=== PATIENT | female | born 1955 | race Caucasian/White ===

== ENCOUNTER → 2020-05-25 11:28 | Outpatient (CLI) | payer BC, SELFPAY ==
[2020-05-25 12:01] LABS: Add Manual Diff / Slide Review NO; Basophils Absolute Auto 0 /uL (0-100); Basophils Percent Auto 0.6 % (0-2); Eosinophils Absolute Auto 100 /uL (0-450); Eosinophils Percent Auto 1.4 % (2-4); Hematocrit 43.9 % (36-46); Hemoglobin 15.4 g/dL (12.0-16.0); Lymphocytes Absolute Auto 1500 /uL (1100-4500); Lymphocytes Percent Auto 31.7 % (25-40); Mean Corpuscular HGB Conc 35.1 % (30-36); Mean Corpuscular Volume 99.7 fL (80-100); Monocytes Absolute Auto 400 /uL (0-900); Monocytes Percent Auto 7.6 % (3-14); Neutrophils Absolute Auto 2900 /uL (1500-7000); Neutrophils Percent Auto 58.7 % (50-75); Platelet Count 170 X10^3/uL (150-400); Red Cell Distribution Width 12.4 % (11.6-14.8); White Blood Cell Count 4.9 X10^3/uL (4.5-11.0)
[2020-05-25 12:18] LABS: Alanine Aminotransferase 135 IU/L (<35); Albumin 4.9 g/dL (3.5-5.0); Albumin Globulin Ratio 1.6 (1.0-2.8); Alkaline Phosphatase 93 U/L (38-126); Aspartate Aminotransferase 75 IU/L (14-36); BUN Creatinine Ratio 23.4 (6-22); Bilirubin Total 0.9 mg/dL (0.2-1.3); Blood Urea Nitrogen 15 mg/dL (7-17); Calcium 9.8 mg/dL (8.4-10.2); Carbon Dioxide 29 mmol/L (22-32); Chloride 103 mmol/L (98-107); Cholesterol 269 mg/dL (140-199); Estimated Glomerular Filt Rate > 60.0 mL/min (>60); Glucose 102 mg/dL (80-110); HDL Cholesterol 59 mg/dL (40-60); HEMOLYSIS < 15 (0-50); LDL Cholesterol Calculated 135 mg/dL (<100); Potassium 4.5 mmol/L (3.4-5.1); Sodium 139 mmol/L (137-145); Total Protein 7.9 g/dL (6.3-8.2); Triglycerides 373 mg/dL (35-150)
[2020-05-25 12:47] LABS: TSH w/ Reflex to FT4 1.84 uIU/mL (0.47-4.68)
== END ==
PROVIDERS: PCP Registered Nurse Diabetes Educator; Referring Provider Registered Nurse Diabetes Educator; Visit Provider Registered Nurse Diabetes Educator
DX: E78.5 Hyperlipidemia, unspecified (principal)
CPT/HCPCS: 36415; 80053; 80061; 84443; 85025

== ENCOUNTER → 2020-08-25 11:08 | Outpatient (CLI) | payer OTHER, SELFPAY ==
[2020-08-25 13:41] LABS: Alanine Aminotransferase 112 IU/L (<35); Albumin Globulin Ratio 1.7 (1.0-2.8); Alkaline Phosphatase 86 U/L (38-126); Aspartate Aminotransferase 84 IU/L (14-36); Bilirubin Unconjugated 0.9 mg/dL (0.0-1.1); Globulin 2.9 g/dL (1.7-4.1); HEMOLYSIS 41 (0-50); Total Protein 7.9 g/dL (6.3-8.2)
== END ==
PROVIDERS: PCP Registered Nurse Diabetes Educator; Referring Provider Registered Nurse Diabetes Educator; Visit Provider Registered Nurse Diabetes Educator
DX: E66.3 Overweight (principal); R74.8 Abnormal levels of other serum enzymes
CPT/HCPCS: 36415; 80076

== ENCOUNTER → 2020-08-31 11:12 | Outpatient (CLI) | payer OTHER, SELFPAY ==
[2020-08-31 12:30] LABS: Creatine Kinase 84 U/L (30-135); HEMOLYSIS < 15 (0-50); Iron 167 ug/dL (37-170)
[2020-08-31 12:41] LABS: Percent Iron Saturation 50 % (15-50); Total Iron Binding Capacity 334 ug/dL (265-497); Transferrin 290 mg/dL (206-381)
[2020-08-31 13:06] LABS: Ferritin 384 ng/mL (11-264)
[2020-08-31 16:36] LABS: Hepatitis B Surface Antigen NEGATIVE s/c (NEGATIVE)
[2020-08-31 16:58] LABS: Hep C Virus Ab w/Reflex Quant NEGATIVE s/c (NEGATIVE)
[2020-09-01 04:08] LABS: Ceruloplasmin 18.4 mg/dL (19.0-39.0)
[2020-09-01 04:36] LABS: Hepatitis B Core AB w/Reflex Negative (Negative)
[2020-09-01 06:09] LABS: Hepatitis A Ab IgM Negative (Negative); Hepatitis A Ab Total Positive (Negative)
[2020-09-01 08:09] LABS: Hepatitis B Surf Ab Qualitativ Non Reactive (.)
[2020-09-01 18:37] LABS: ANA Screen, IFA Negative (.)
[2020-09-02 11:36] LABS: Smooth Muscle Antibody 6 Units (0-19)
[2020-09-03 03:36] LABS: Deamidated Gliadin IgA 4 units (0-19); Deamidated Gliadin IgG 2 units (0-19); IGA 146 mg/dL (87-352); t-Transglutaminase IgA <2 U/mL (0-3)
== END ==
PROVIDERS: PCP Registered Nurse Diabetes Educator; Referring Provider Registered Nurse Diabetes Educator; Visit Provider Registered Nurse Diabetes Educator
DX: R74.8 Abnormal levels of other serum enzymes (principal)
CPT/HCPCS: 36415; 82390; 82550; 82728; 82784; 83516; 83540; 83550; 86038; 86704; 86706; 86708; 86709; 86803; 87340

== ENCOUNTER → 2020-09-02 08:53 | Outpatient (CLI) | payer OTHER, SELFPAY ==
--- NOTE | 2020-09-02 08:54 | DI.US.S_ITS ---
PROCEDURE: US ABDOMEN LIMITED INDICATIONS: ELEVATED ALT/AST TECHNIQUE: Real-time scanning was performed of the abdominal and retroperitoneal organs, with image documentation. COMPARISON: None. FINDINGS: Liver: Normal in size. Increased in echogenicity. Simple cyst in the left lobe measuring 2.1 cm. Main portal vein measures 1 cm in diameter. Expected hepatopetal flow. Gallbladder: Nondilated. Anti dependent echogenic focus at the gallbladder fundus measuring 0.8 cm. Echogenic focus at the proximal gallbladder measuring 0.7 cm. No stones or sludge. Normal gallbladder wall thickness. No pericholecystic fluid. Negative sonographic Altman's sign. Biliary ducts: Intrahepatic bile ducts are non-dilated. Extrahepatic bile duct caliber measures 4 mm. Normal is 6-7 mm or less in diameter, or 10 mm or less post-cholecystectomy. Pancreas: Visualized portions of the pancreas are sonographically normal. No hydronephrosis of the right kidney. IMPRESSION: 1. Increased hepatic echogenicity most consistent with hepatic steatosis. Other forms of hepatocellular disease could have similar appearance. 2. Small gallbladder polyps measuring up to 8 mm. -recommend follow-up gallbladder ultrasound in 1 year. 3. No acute cholecystitis. No gallstones seen. Dictated by: Mike Hurtado M.D. on 09/02/2020 at 9:12 Approved by: Mike Hurtado M.D. on 09/02/2020 at 9:17
== END ==
PROVIDERS: PCP Registered Nurse Diabetes Educator; Referring Provider Registered Nurse Diabetes Educator; Visit Provider Registered Nurse Diabetes Educator
DX: R74.8 Abnormal levels of other serum enzymes (principal); K82.4 Cholesterolosis of gallbladder
CPT/HCPCS: 76705

== ENCOUNTER → 2020-10-01 10:01 | Outpatient (CLI) | payer OTHER, SELFPAY | PROVIDERS: PCP Registered Nurse Diabetes Educator; Referring Provider Registered Nurse Diabetes Educator; Visit Provider Registered Nurse Diabetes Educator | DX: R74.8 Abnormal levels of other serum enzymes (principal) | CPT/HCPCS: 82525; 82570 ==

== ENCOUNTER → 2020-12-17 11:13 | Outpatient (CLI) | payer OTHER, SELFPAY ==
--- NOTE | 2020-12-17 11:14 | DI.MG.S_ITS ---
BILATERAL DIGITAL SCREENING MAMMOGRAM 3D/2D WITH CAD: 12/17/2020 CLINICAL: Routine screening. Comparison is made to exams dated: 07/27/2015 mammogram, 07/26/2016 mammogram, 04/28/2017 mammogram, and 05/01/2018 mammogram - outside location. The tissue of both breasts is heterogeneously dense. This may lower the sensitivity of mammography. Current study was also evaluated with a Computer Aided Detection (CAD) system. No significant masses, calcifications, or other findings are seen in either breast. There has been no significant interval change. IMPRESSION: NEGATIVE There is no mammographic evidence of malignancy. A 1 year screening mammogram is recommended. This exam was interpreted at Station ID: [id number]. NOTE: For mammograms, a report in lay terms will be sent to the patient. Approximately 15% of breast malignancies will not be visualized mammographically. In the management of a palpable breast mass, a negative mammogram must not discourage biopsy of a clinically suspicious lesion. Electronically Signed By: Mike Hurtado M.D. slc/:12/17/2020 12:45:10 letter sent: Normal Exam ACR BI-RADS Category 1: Negative 3341F
== END ==
PROVIDERS: PCP Registered Nurse Diabetes Educator; Referring Provider Registered Nurse Diabetes Educator; Visit Provider Registered Nurse Diabetes Educator
DX: Z12.31 Encounter for screening mammogram for malignant neoplasm of breast (principal)
CPT/HCPCS: 77063; 77067

== ENCOUNTER → 2021-05-20 10:53 | Outpatient (CLI) | payer OTHER, SELFPAY ==
--- NOTE | 2021-05-20 10:55 | DI.RAD.S_ITS ---
PROCEDURE: XR DEXA AXIAL SKELETON INDICATIONS: osteoporosis screen COMPARISON: None. FINDINGS: This blank DEXA report has been sent in error by the PACS system. The correct and complete report will be forthcoming in 1-2 days. Thank you for your patience and understanding. Dictated by: Ernie Centeno M.D. on 05/20/2021 at 13:53 Approved by: Ernie Centeno M.D. on 05/20/2021 at 13:53
== END ==
PROVIDERS: PCP Registered Nurse Diabetes Educator; Referring Provider Registered Nurse Diabetes Educator; Visit Provider Registered Nurse Diabetes Educator
DX: Z00.00 Encounter for general adult medical examination without abnormal findings (principal); Z78.0 Asymptomatic menopausal state
CPT/HCPCS: 77080

== ENCOUNTER → 2021-06-14 09:23 | Outpatient (CLI) | payer OTHER, SELFPAY ==
[2021-06-14 10:35] LABS: Alanine Aminotransferase 28 IU/L (<35); Albumin 4.7 g/dL (3.5-5.0); Alkaline Phosphatase 72 U/L (38-126); Aspartate Aminotransferase 29 IU/L (14-36); Bilirubin Total 0.8 mg/dL (0.2-1.3); Bilirubin Unconjugated 0.7 mg/dL (0.0-1.1); Cholesterol 278 mg/dL (140-199); Globulin 2.3 g/dL (1.7-4.1); Glucose 99 mg/dL (80-110); HDL Cholesterol 74 mg/dL (40-60); HEMOLYSIS < 15 (0-50); Iron 152 ug/dL (37-170); LDL Cholesterol Calculated 149 mg/dL (<100); Triglycerides 274 mg/dL (35-150)
[2021-06-14 10:46] LABS: Percent Iron Saturation 55 % (15-50); Total Iron Binding Capacity 278 ug/dL (265-497); Transferrin 237 mg/dL (206-381)
[2021-06-14 11:02] LABS: Ferritin 113 ng/mL (11-264)
== END ==
PROVIDERS: PCP Registered Nurse Diabetes Educator; Referring Provider Registered Nurse Diabetes Educator; Visit Provider Registered Nurse Diabetes Educator
DX: E78.5 Hyperlipidemia, unspecified (principal); K76.0 Fatty (change of) liver, not elsewhere classified; R74.8 Abnormal levels of other serum enzymes; Z00.00 Encounter for general adult medical examination without abnormal findings
CPT/HCPCS: 36415; 80061; 80076; 82728; 82947; 83540; 83550

== ENCOUNTER → 2021-09-07 10:13 | Outpatient (CLI) | payer OTHER, SELFPAY ==
--- NOTE | 2021-09-07 10:14 | DI.US.S_ITS ---
PROCEDURE: US ABDOMEN LIMITED INDICATIONS: 1 YEAR FOLLOW UP GALLBLADDER POLYPS TECHNIQUE: Real-time focused scanning was performed of the abdomen, with image documentation. COMPARISON: [facility], , US ABDOMEN LIMITED, 09/02/2020, 9:08. FINDINGS: Multiple probable polyps, the largest of which measures approximately 8 mm, unchanged. No gallstones or gallbladder wall thickening. Liver is somewhat echogenic consistent with fatty change. No dilated ducts, with the common hepatic duct measuring 1.3 mm and the common bile duct measuring 2.8 mm. Visualized portions the pancreas are unremarkable. IMPRESSION: 1. Unchanged gallbladder polyps. 2. Probable diffuse hepatic steatosis. Dictated by: Jessee Nguyễn M.D. on 09/07/2021 at 12:56 Approved by: Jessee Nguyễn M.D. on 09/07/2021 at 16:34
[2021-09-07 12:03] LABS: Alanine Aminotransferase 32 IU/L (<35); Albumin 4.7 g/dL (3.5-5.0); Albumin Globulin Ratio 1.8 (1.0-2.8); Alkaline Phosphatase 60 U/L (38-126); Aspartate Aminotransferase 29 IU/L (14-36); Bilirubin Total 0.8 mg/dL (0.2-1.3); Bilirubin Unconjugated 0.9 mg/dL (0.0-1.1); Cholesterol 268 mg/dL (140-199); Globulin 2.6 g/dL (1.7-4.1); HDL Cholesterol 71 mg/dL (40-60); HEMOLYSIS < 15 (0-50); LDL Cholesterol Calculated 149 mg/dL (<100); Total Protein 7.3 g/dL (6.3-8.2); Triglycerides 241 mg/dL (35-150)
== END ==
PROVIDERS: PCP Registered Nurse Diabetes Educator; Referring Provider Registered Nurse Diabetes Educator; Visit Provider Registered Nurse Diabetes Educator
DX: E78.5 Hyperlipidemia, unspecified (principal); K82.4 Cholesterolosis of gallbladder; R74.8 Abnormal levels of other serum enzymes
CPT/HCPCS: 36415; 76705; 80061; 80076

== ENCOUNTER → 2021-11-15 11:20 | Outpatient (CLI) | payer OTHER, SELFPAY | PROVIDERS: PCP Registered Nurse Diabetes Educator; Visit Provider Obstetrics & Gynecology | DX: N39.0 Urinary tract infection, site not specified (principal) | CPT/HCPCS: 87086 ==

== ENCOUNTER → 2021-12-09 10:10 | Outpatient (CLI) | payer OTHER, SELFPAY ==
[2021-12-09 13:22] LABS: Alanine Aminotransferase 40 IU/L (<35); Albumin 5.1 g/dL (3.5-5.0); Albumin Globulin Ratio 1.9 (1.0-2.8); Alkaline Phosphatase 67 U/L (38-126); Aspartate Aminotransferase 36 IU/L (14-36); Bilirubin Total 0.8 mg/dL (0.2-1.3); Bilirubin Unconjugated 0.9 mg/dL (0.0-1.1); Cholesterol 249 mg/dL (140-199); Globulin 2.7 g/dL (1.7-4.1); HDL Cholesterol 69 mg/dL (40-60); HEMOLYSIS < 15 (0-50); LDL Cholesterol Calculated 115 mg/dL (<100); Total Protein 7.8 g/dL (6.3-8.2); Triglycerides 325 mg/dL (35-150)
== END ==
PROVIDERS: PCP Registered Nurse Diabetes Educator; Referring Provider Registered Nurse Diabetes Educator; Visit Provider Registered Nurse Diabetes Educator
DX: E78.5 Hyperlipidemia, unspecified (principal); R74.8 Abnormal levels of other serum enzymes
CPT/HCPCS: 36415; 80061; 80076

== ENCOUNTER → 2022-03-03 13:21 | Outpatient (CLI) | payer OTHER, SELFPAY ==
--- NOTE | 2022-03-03 13:22 | DI.US.S_ITS ---
LIMITED ULTRASOUND OF LEFT BREAST: 03/03/2022 CLINICAL: Left breast lump. No prior exams were available for comparison. Color flow and real-time ultrasound of the left breast 2 o'clock region were performed. Real-time ultrasonography of left breast was performed with computer guidance to assure complete coverage of the breast tissue and to provide a uniform data set. Images were transferred to a viewing station for 3-D rendering. No sonographic correlate to the patient's palpable abnormalities in the 2:00 position of the left breast. A 3 mm cyst is incidentally noted amidst dense fibrous tissue. No other findings. IMPRESSION: NEGATIVE There is no sonographic evidence of malignancy. There are no abnormalities seen in the left breast to correspond with the palpable nodularities at 2 o'clock which is most consistent with normal fibroglandular tissue. Return to annual mammogram screening schedule is recommended. Findings and recommendations were conveyed to the patient at time of exam. This exam was interpreted at Station ID: [id number]. Electronically Signed By: Simran paiz/:03/03/2022 14:35:34 Entry: - 03/04/2022 09:47:55 letter sent: Normal Exam Ultrasound BI-RADS: 1 Negative
--- NOTE | 2022-03-03 13:22 | DI.MG.S_ITS ---
BILATERAL DIGITAL DIAGNOSTIC MAMMOGRAM 3D/2D: 03/03/2022 CLINICAL: Palpable left breast lump. Comparison is made to exams dated: 12/17/2020 mammogram - [facility], 05/01/2018 mammogram, and 04/28/2017 mammogram - outside location. There are scattered fibroglandular elements in both breasts. No significant masses, calcifications, or other findings are seen in either breast. Specifically, no finding to correspond to the patient's palpable abnormality. IMPRESSION: INCOMPLETE: NEEDS ADDITIONAL IMAGING EVALUATION There are no abnormalities seen in the left breast to correspond with the palpable nodularities at 2 o'clock. Ultrasound is recommended for full evaluation of this area. This was performed immediately following this exam. Based on the Tyrer Cuzick model (a risk assessment model) the patient's lifetime risk is 5.4% and her 10 year risk is 2.8%. According to the ACR, ACS, and NCCN guidelines, an annual breast MRI exam along with mammogram is recommended if the patient's lifetime risk is 20% or greater. This exam was interpreted at Station ID: [id number]. NOTE: For mammograms, a report in lay terms will be sent to the patient. Approximately 15% of breast malignancies will not be visualized mammographically. In the management of a palpable breast mass, a negative mammogram must not discourage biopsy of a clinically suspicious lesion. Electronically Signed By: Simran paiz/:03/03/2022 14:31:15 ACR BI-RADS Category 0: Incomplete 3340F
== END ==
PROVIDERS: PCP Registered Nurse Diabetes Educator; Referring Provider Registered Nurse Diabetes Educator; Visit Provider Registered Nurse Diabetes Educator
DX: N63.21 Unspecified lump in the left breast, upper outer quadrant (principal); R92.2 Inconclusive mammogram
CPT/HCPCS: 76642; 77066; G0279

== ENCOUNTER → 2022-12-02 08:08 | Outpatient (CLI) | payer OTHER, SELFPAY ==
[2022-12-02 09:44] LABS: Hematocrit 41.4 % (36-46); Hemoglobin 14.3 g/dL (12.0-16.0); Mean Corpuscular HGB Conc 34.6 % (30-36); Mean Corpuscular Hemoglobin 34.2 PG (26-34); Mean Corpuscular Volume 98.8 fL (80-100); Platelet Count 166 X10^3/uL (150-400); Red Blood Cell Count 4.19 X10^6/uL (4.0-5.2); Red Cell Distribution Width 12.2 % (11.6-14.8); White Blood Cell Count 4.7 X10^3/uL (4.5-11.0)
[2022-12-02 10:14] LABS: Alanine Aminotransferase 76 IU/L (<35); Albumin 4.4 g/dL (3.5-5.0); Albumin Globulin Ratio 1.8 (1.0-2.8); Alkaline Phosphatase 71 U/L (38-126); Aspartate Aminotransferase 49 IU/L (14-36); BUN Creatinine Ratio 26.3 (6-22); Blood Urea Nitrogen 15 mg/dL (7-17); Calcium 9.4 mg/dL (8.4-10.2); Carbon Dioxide 27 mmol/L (22-32); Chloride 104 mmol/L (98-107); Cholesterol 218 mg/dL (140-199); Estimated Glomerular Filt Rate > 60 mL/min (>60); Globulin 2.5 g/dL (1.7-4.1); Glucose 100 mg/dL (80-110); HDL Cholesterol 62 mg/dL (40-60); HEMOLYSIS < 15 (0-50); LDL Cholesterol Calculated 113 mg/dL (<100); Potassium 4.5 mmol/L (3.4-5.1); Sodium 138 mmol/L (137-145); Total Protein 6.9 g/dL (6.3-8.2); Triglycerides 217 mg/dL (35-150)
== END ==
PROVIDERS: PCP Registered Nurse Diabetes Educator; Referring Provider Registered Nurse Diabetes Educator; Visit Provider Registered Nurse Diabetes Educator
DX: E78.5 Hyperlipidemia, unspecified (principal); K76.0 Fatty (change of) liver, not elsewhere classified; R74.8 Abnormal levels of other serum enzymes
CPT/HCPCS: 36415; 80053; 80061; 85027

== ENCOUNTER → 2023-03-04 10:22 | Outpatient (CLI) | payer OTHER, SELFPAY ==
--- NOTE | 2023-03-04 10:22 | DI.MG.S_ITS ---
BILATERAL DIGITAL SCREENING MAMMOGRAM 3D/2D WITH CAD: 03/04/2023 CLINICAL: Routine screening. Comparison is made to exams dated: 03/03/2022 mammogram, 12/17/2020 mammogram - [facility], and 05/01/2018 mammogram - outside location. There are scattered areas of fibroglandular density in both breasts (category b / 25%-50% glandular tissue). Current study was also evaluated with a Computer Aided Detection (CAD) system. No significant masses, calcifications, or other findings are seen in either breast. There has been no significant interval change. IMPRESSION: NEGATIVE There is no mammographic evidence of malignancy. A 1 year screening mammogram is recommended. Based on the Tyrer Cuzick model (a risk assessment model) the patient's lifetime risk is 5.1% and her 10 year risk is 2.8%. According to the ACR, ACS, and NCCN guidelines, an annual breast MRI exam along with mammogram is recommended if the patient's lifetime risk is 20% or greater. This exam was interpreted at Station ID: [id number]. NOTE: For mammograms, a report in lay terms will be sent to the patient. Approximately 15% of breast malignancies will not be visualized mammographically. In the management of a palpable breast mass, a negative mammogram must not discourage biopsy of a clinically suspicious lesion. Electronically Signed By: Zack barrera/benedicto:03/06/2023 07:26:03 letter sent: Normal Exam ACR BI-RADS Category 1: Negative 3341F
== END ==
PROVIDERS: PCP Registered Nurse Diabetes Educator; Referring Provider Registered Nurse Diabetes Educator; Visit Provider Registered Nurse Diabetes Educator
DX: Z12.31 Encounter for screening mammogram for malignant neoplasm of breast (principal)
CPT/HCPCS: 77063; 77067

== ENCOUNTER → 2023-04-13 08:11 | Outpatient (CLI) | payer OTHER, SELFPAY ==
[2023-04-13 09:26] LABS: Alanine Aminotransferase 51 IU/L (<35); Albumin 4.3 g/dL (3.5-5.0); Albumin Globulin Ratio 1.7 (1.0-2.8); Alkaline Phosphatase 75 U/L (38-126); Aspartate Aminotransferase 40 IU/L (14-36); Bilirubin Total 0.8 mg/dL (0.2-1.3); Bilirubin Unconjugated 0.6 mg/dL (0.0-1.1); Cholesterol 218 mg/dL (140-199); Globulin 2.5 g/dL (1.7-4.1); HDL Cholesterol 60 mg/dL (40-60); HEMOLYSIS < 15 (0-50); LDL Cholesterol Calculated 113 mg/dL (<100); Total Protein 6.8 g/dL (6.3-8.2); Triglycerides 223 mg/dL (35-150)
== END ==
PROVIDERS: PCP Registered Nurse Diabetes Educator; Referring Provider Registered Nurse Diabetes Educator; Visit Provider Registered Nurse Diabetes Educator
DX: E78.5 Hyperlipidemia, unspecified (principal); K76.0 Fatty (change of) liver, not elsewhere classified; R74.8 Abnormal levels of other serum enzymes
CPT/HCPCS: 36415; 80061; 80076

== ENCOUNTER → 2023-09-15 11:03 | Outpatient (CLI) | payer OTHER, SELFPAY ==
[2023-09-15 13:34] LABS: Alanine Aminotransferase 69 IU/L (<35); Albumin 4.6 g/dL (3.5-5.0); Albumin Globulin Ratio 1.5 (1.0-2.8); Alkaline Phosphatase 69 U/L (38-126); Aspartate Aminotransferase 48 IU/L (14-36); Bilirubin Total 0.8 mg/dL (0.2-1.3); Bilirubin Unconjugated 0.5 mg/dL (0.0-1.1); Cholesterol 301 mg/dL (140-199); HDL Cholesterol 48 mg/dL (40-60); HEMOLYSIS < 15 (0-50); LDL Cholesterol Calculated 173 mg/dL (<100); Total Protein 7.6 g/dL (6.3-8.2); Triglycerides 400 mg/dL (35-150)
== END ==
PROVIDERS: PCP Registered Nurse Diabetes Educator; Referring Provider Registered Nurse Diabetes Educator; Visit Provider Registered Nurse Diabetes Educator
DX: E78.5 Hyperlipidemia, unspecified (principal); R74.8 Abnormal levels of other serum enzymes; K76.0 Fatty (change of) liver, not elsewhere classified
CPT/HCPCS: 36415; 80061; 80076

== ENCOUNTER → 2024-02-07 09:30 | Outpatient (CLI) | payer OTHER, SELFPAY ==
--- NOTE | 2024-02-07 | DI.RAD.S_ITS ---
PROCEDURE: XR CLAVICLE RT INDICATIONS: RT CLAVICULAR PROMINENCE TECHNIQUE: 2 views of the clavicle were acquired. COMPARISON: None. FINDINGS: Bones: No fractures or dislocations. Right acromioclavicular joint and sternoclavicular joint osteoarthritic changes are seen with joint space narrowing, subchondral sclerosis and marginal osteophyte formation. No suspicious bony lesions. Soft tissues: No suspicious soft tissue calcifications. 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 No suspicious bony lesions. No fracture or dislocation. No gross soft tissue abnormalities. Dictated by: Daniel Joshua M.D. on 02/07/2024 at 13:20 Approved by: Daniel Joshua M.D. on 02/07/2024 at 13:21
--- NOTE | 2024-02-07 09:33 | DI.RAD.S_ITS ---
PROCEDURE: XR CLAVICLE LT INDICATIONS: eval prominence/poss enlargement R medial clavicle TECHNIQUE: 2 views of the clavicle were acquired. COMPARISON: None. FINDINGS: Bones: No fractures or dislocations. Oxvf-uy-nnoyohlg acromioclavicular joint and sternal clavicular joint osteoarthritic changes are seen with joint space narrowing, subchondral sclerosis and marginal osteophyte formation. No suspicious bony lesions. Soft tissues: No suspicious soft tissue calcifications. IMPRESSION: Mild to moderate left acromioclavicular joint and sternoclavicular joint osteoarthritis. No fracture or dislocation. No suspicious bony lesions. No gross soft tissue abnormalities. Dictated by: Daniel Joshua M.D. on 02/07/2024 at 13:21 Approved by: Daniel Joshua M.D. on 02/07/2024 at 13:22
[2024-02-07 11:25] LABS: Add Manual Diff / Slide Review NO; Basophils Absolute Auto 0 /uL (0-100); Basophils Percent Auto 0.6 % (0-2); Eosinophils Absolute Auto 100 /uL (0-450); Eosinophils Percent Auto 1.5 % (2-4); Hematocrit 41.8 % (36-46); Hemoglobin 14.5 g/dL (12.0-16.0); Lymphocytes Absolute Auto 1500 /uL (1100-4500); Mean Corpuscular HGB Conc 34.7 % (30-36); Mean Corpuscular Hemoglobin 34.4 PG (26-34); Mean Corpuscular Volume 99.3 fL (80-100); Monocytes Absolute Auto 300 /uL (0-900); Monocytes Percent Auto 7.1 % (3-14); Neutrophils Absolute Auto 2600 /uL (1500-7000); Neutrophils Percent Auto 56.8 % (50-75); Platelet Count 185 X10^3/uL (150-400); Red Blood Cell Count 4.21 X10^6/uL (4.0-5.2); Red Cell Distribution Width 12.4 % (11.6-14.8); White Blood Cell Count 4.5 X10^3/uL (4.5-11.0)
[2024-02-07 11:44] LABS: Alanine Aminotransferase 86 IU/L (<35); Albumin 4.7 g/dL (3.5-5.0); Albumin Globulin Ratio 1.7 (1.0-2.8); Alkaline Phosphatase 76 U/L (38-126); Aspartate Aminotransferase 59 IU/L (14-36); Bilirubin Total 0.9 mg/dL (0.2-1.3); Bilirubin Unconjugated 0.5 mg/dL (0.0-1.1); Cholesterol 314 mg/dL (140-199); Globulin 2.7 g/dL (1.7-4.1); HDL Cholesterol 64 mg/dL (40-60); HEMOLYSIS < 15 (0-50); LDL Cholesterol Calculated 176 mg/dL (<100); Total Protein 7.4 g/dL (6.3-8.2); Triglycerides 369 mg/dL (35-150)
[2024-02-07 12:11] LABS: TSH w/ Reflex to FT4 1.58 uIU/mL (0.47-4.68)
== END ==
PROVIDERS: PCP Registered Nurse Diabetes Educator; Referring Provider Physician Assistant; Visit Provider Physician Assistant
DX: M19.011 Primary osteoarthritis, right shoulder (principal); M19.012 Primary osteoarthritis, left shoulder; Q74.0 Other congenital malformations of upper limb(s), including shoulder girdle; R00.2 Palpitations; E78.5 Hyperlipidemia, unspecified; R74.8 Abnormal levels of other serum enzymes
CPT/HCPCS: 36415; 73000; 80061; 80076; 84443; 85025

== ENCOUNTER → 2024-03-21 09:45 | Outpatient (CLI) | payer OTHER, SELFPAY ==
--- NOTE | 2024-03-21 09:46 | DI.MG.S_ITS ---
BILATERAL DIGITAL SCREENING MAMMOGRAM 3D/2D WITH CAD: 03/21/2024 CLINICAL: Routine screening. Comparison is made to exams dated: 03/04/2023 mammogram, 03/03/2022 mammogram, and 12/17/2020 mammogram - [facility]. There are scattered areas of fibroglandular density in both breasts (category b / 25%-50% glandular tissue). Current study was also evaluated with a Computer Aided Detection (CAD) system. There are benign post operative findings in the right breast. No significant masses, calcifications, or other findings are seen in either breast. There has been no significant interval change. IMPRESSION: BENIGN There is no mammographic evidence of malignancy. A 1 year screening mammogram is recommended. Based on the Tyrer Cuzick model (a risk assessment model) the patient's lifetime risk is 4.9% and her 10 year risk is 2.9%. According to the ACR, ACS, and NCCN guidelines, an annual breast MRI exam along with mammogram is recommended if the patient's lifetime risk is 20% or greater. This exam was interpreted at Station ID: [id number]. NOTE: For mammograms, a report in lay terms will be sent to the patient. Approximately 15% of breast malignancies will not be visualized mammographically. In the management of a palpable breast mass, a negative mammogram must not discourage biopsy of a clinically suspicious lesion. Electronically Signed By: Loyda Ruiz M.D., Ph.D. ryan/benedicto:03/22/2024 08:08:46 letter sent: Normal Exam ACR BI-RADS Category 2: Benign Finding(s) 3342F
== END ==
PROVIDERS: PCP Registered Nurse Diabetes Educator; Referring Provider Registered Nurse Diabetes Educator; Visit Provider Registered Nurse Diabetes Educator
DX: Z12.31 Encounter for screening mammogram for malignant neoplasm of breast (principal); R92.323 Mammographic fibroglandular density, bilateral breasts
CPT/HCPCS: 77063; 77067

== ENCOUNTER → 2024-12-29 13:06 | Outpatient (CLI) | payer MEDICARE, OTHER, SELFPAY ==
--- NOTE | 2024-12-29 13:08 | DI.RAD.S_ITS ---
PROCEDURE: XR HUMERUS RT 2V INDICATIONS: traumatic R arm TECHNIQUE: 2 views of the humerus were acquired. COMPARISON: None. FINDINGS: Bones: No fractures or dislocations. Mild to moderate osteoarthritic changes are noted in acromioclavicular joint and glenohumeral joint. No suspicious bony lesions. Soft tissues: No suspicious soft tissue calcifications. IMPRESSION: No acute humeral fracture or dislocation. No suspicious bony lesions. Menh-fw-dukcyfbi right acromioclavicular joint and glenohumeral joint osteoarthritis. Dictated by: Daniel Joshua M.D. on 12/29/2024 at 18:43 Approved by: Daniel Joshua M.D. on 12/29/2024 at 18:44
--- NOTE | 2024-12-29 13:08 | DI.RAD.S_ITS ---
PROCEDURE: XR SHOULDER RT MIN 2V INDICATIONS: traumatic R arm TECHNIQUE: 3 views of the shoulder were acquired. COMPARISON: None. FINDINGS: Bones: No fractures or dislocations. No suspicious bony lesions. Dyco-su-snhaojuj acromioclavicular joint osteoarthritic changes are seen. Mild glenohumeral joint osteoarthritic changes also noted. Visualized ribs appear intact. Soft tissues: No suspicious soft tissue calcifications. IMPRESSION: No acute right shoulder fracture or dislocation. Izod-va-aopvgufr right shoulder joint osteoarthritis. Dictated by: Daniel Joshua M.D. on 12/29/2024 at 18:44 Approved by: Daniel Joshua M.D. on 12/29/2024 at 18:45
== END ==
LOC: RAD 13:08
PROVIDERS: PCP Registered Nurse Diabetes Educator; Referring Provider Chiropractor; Visit Provider Chiropractor
DX: S40.011A Contusion of right shoulder, initial encounter (principal); S40.021A Contusion of right upper arm, initial encounter; M19.011 Primary osteoarthritis, right shoulder; X58.XXXA Exposure to other specified factors, initial encounter
CPT/HCPCS: 73030; 73060

== ENCOUNTER → 2025-01-08 18:29 | Outpatient (CLI) | payer MEDICARE, OTHER, SELFPAY ==
--- NOTE | 2025-01-08 18:35 | DI.MRI.S_ITS ---
PROCEDURE: MR SHOULDER RT WO CON INDICATIONS: R/O RTC TEAR TECHNIQUE: Noncontrast oblique coronal T2 fast spin echo with fat saturation, oblique sagittal T1 spin echo and T2 fast spin echo with fat saturation, axial T1 spin echo and T2 fast spin echo with fat saturation through the shoulder. COMPARISON: [facility], CR, XR SHOULDER RT 2+ VIEWS, 12/29/2024, 13:06. FINDINGS: Image quality: Excellent. Rotator cuff: There is full-thickness tearing of the supraspinatus tendon and the anterior fibers of the infraspinatus tendon at the critical zone and distal insertion with proximal tendon retraction measuring up to 2.8 cm. Partial intrasubstance tearing is seen in the more posterior infraspinatus tendon. Teres minor tendon is intact. Moderate subscapularis tendinosis. Intramuscular edema is seen in the infraspinatus tendon compatible with low-grade strain. No significant rotator cuff muscle atrophy. Bones and bursae: No acute trabecular bone injury or fracture. Small chronic traction cystic changes are seen at the posterior superior humeral head and greater tuberosity near the rotator cuff tendon insertions. Partial-thickness cartilage irregularity in the glenoid rim with small marginal osteophytes. Moderate degenerative changes at the acromioclavicular joint with subchondral cystic changes and marginal osteophytes. Small amount of fluid in the subacromial/subdeltoid bursa communicates with the glenohumeral joint space. Capsule and soft tissues: Mild diffuse labral degeneration without an acute displaced tear. Mild tendinosis of the proximal biceps long head tendon. Mild edema is seen inferior to the axillary recess that may indicate prior capsular injury. No definite discontinuity of ligament fibers is seen on the current exam. IMPRESSION: 1. Full-thickness tearing of the supraspinatus tendon and the anterior fibers of the infraspinatus tendon at the critical zone and distal insertion with proximal tendon retraction measuring up to 2.8 cm. Partial intrasubstance tearing is seen in the more posterior infraspinatus tendon. 2. Mild edema in the infraspinatus muscle is consistent with a low-grade strain. 3. Moderate subscapularis tendinosis. 4. Mild proximal biceps long head tendinosis. 5. Moderate acromioclavicular joint osteoarthrosis. 6. Mild edema inferior to the axillary recess may indicate a prior capsular injury although no discontinuity of ligament fibers is seen on the current exam. 7. Small subacromial/subdeltoid bursal effusion communicates with the glenohumeral joint space. Approved by: Ernie Centeno M.D. on 01/09/2025 at 9:53
== END ==
PROVIDERS: PCP Registered Nurse Diabetes Educator; Referring Provider Orthopaedic Surgery; Visit Provider Orthopaedic Surgery
DX: M75.121 Complete rotator cuff tear or rupture of right shoulder, not specified as traumatic (principal); M19.011 Primary osteoarthritis, right shoulder; M25.411 Effusion, right shoulder; M25.511 Pain in right shoulder
CPT/HCPCS: 73221

== ENCOUNTER → 2025-02-14 08:17 | Outpatient (CLI) | payer OTHER, SELFPAY ==
[2025-02-14 09:13] LABS: Alanine Aminotransferase 75 IU/L (<35); Albumin 4.9 g/dL (3.5-5.0); Albumin Globulin Ratio 2.2 (1.0-2.8); Alkaline Phosphatase 84 U/L (38-126); Aspartate Aminotransferase 46 IU/L (14-36); BUN Creatinine Ratio 24.2 (6-22); Blood Urea Nitrogen 16 mg/dL (7-17); Carbon Dioxide 26 mmol/L (22-32); Chloride 104 mmol/L (98-107); Cholesterol 298 mg/dL (140-199); Estimated Glomerular Filt Rate > 60 mL/min (>60); Globulin 2.2 g/dL (1.7-4.1); Glucose 108 mg/dL (70-99); HDL Cholesterol 60 mg/dL (40-60); HEMOLYSIS < 15 (0-50); LDL Cholesterol Calculated 174 mg/dL (<100); Potassium 4.2 mmol/L (3.4-5.1); Sodium 139 mmol/L (137-145); Total Protein 7.1 g/dL (6.3-8.2); Triglycerides 318 mg/dL (35-150)
== END ==
PROVIDERS: PCP Registered Nurse Diabetes Educator; Referring Provider Registered Nurse Diabetes Educator; Visit Provider Registered Nurse Diabetes Educator
DX: K76.0 Fatty (change of) liver, not elsewhere classified (principal); E78.5 Hyperlipidemia, unspecified; R74.8 Abnormal levels of other serum enzymes; R73.01 Impaired fasting glucose
CPT/HCPCS: 36415; 80053; 80061

== ENCOUNTER 2025-07-05 00:57 | Inpatient (IN) | payer OTHER, SELFPAY ==
[2025-07-05] VITALS (49 sets, daily range): BP systolic 90–189; BP diastolic 52–129; PULSE 60–151; RESP 7–31; TEMP 36.4–37.1; O2SAT 90–100; BMI 29.2
--- NOTE | 2025-07-05 00:57 | ED_ITS ---
HPI - Arrhythmia/Palpitations
--- NOTE | 2025-07-05 00:57 | ED.ARRPALP ---
HPI - Arrhythmia/Palpitations General Chief Complaint: Arrhythmia/Palpitations Stated Complaint: heart palpitations Time Seen by Provider: 07/05/25 00:57 History of Present Illness HPI narrative: 70-year-old female without any significant past medical history comes into the ED from home for evaluation of palpitations ongoing persistent for the past week, she states that she did have an irregular heartbeat 8 years ago was told that it was secondary to caffeine since then she has never had any issues. She denies any recent caffeine use, denies any headache visual disturbance chest pain shortness breath fever chills nausea vomiting abdominal pain or any other GI/ symptoms time, patient found to be in AFib, but blood pressure stable. She denies any other symptoms not on any blood thinners. Related Data Previous Rx's ?Medication ?Instructions ?Recorded estradiol 0.01% (0.1 mg/gram) 1 g vaginal .2xmonthly #42.5 grams 02/17/25 vaginal cream (Estrace) Allergies Allergy/AdvReac Type Severity Reaction Status Date / Time No Known Drug Allergies Allergy Verified 07/05/25 01:07 Review of Systems Review of Systems Narrative: General: Denies fever, chills, weight loss HEENT: Denies headache, eye drainage, eye irritation, head trauma, sore throat, voice change Cardiovascular: Positive palpitations Denies any chest pain,tachycardia Respiratory: Denies any shortness of breath, cough, wheeze, stridor GI/: Denies any abdominal pain, nausea, vomiting, diarrhea, bright red blood per rectum, melanotic stools, urinary frequency, urinary retention, dysuria, hematuria MSK: Denies any joint pain, muscle pains, swelling Skin: Denies any rashes, lesions, discoloration Neuro: Denies any headache, lightheadedness, dizziness, fainting, weakness Psych: Denies SI/HI Patient History Medical History (Updated 07/05/25 @ 02:50 by Barrie Johnson DO) Family history of colorectal cancer Impaired fasting blood sugar Genitourinary syndrome of menopause Gallbladder polyp Hepatic steatosis Anxiety (~1984) Chicken pox Painful menstrual periods (~1998) Fibroids (~1998) Overweight (BMI 25.0-29.9) Liver enzyme elevation Dyslipidemia CTS (carpal tunnel syndrome) Surgical History Anesthesia History of tubal ligation (~1993) History of right breast biopsy (~1994) History of hysterectomy (~1999) History of appendectomy (~2009) Family History Father Cancer Mother Cancer Grandfather Cancer Grandmother Cancer Social History Smoking Status: Never smoker Exam Narrative Exam Narrative: General: Cooperative, well-developed, not in acute distress HEENT: Normocephalic, atraumatic, PERRLA, normal sclera, eyelids normal Neck: Active full range of motion, atraumatic Chest: Normal to inspection, negative crepitus, no overlying erythema ecchymosis Respiratory: Normal respiratory effort, not in acute respiratory distress, clear to auscultation bilaterally negative cough, wheeze, tachypnea, rhonchi, rales Cardiology: Irregularly irregular negative gallop, murmur, rubs GI/: No tenderness to palpation, soft, non rigid, normal to inspection, exam deferred MSK: Full active range of motion in all 4 extremities, atraumatic, no tenderness to palpation of any bony prominences Skin: No rashes or lesions noted Neuro: Alert awake oriented x3, moves all 4 extremities spontaneously, cranial nerves intact, able to answer all questions appropriately follows commands appropriately Psych: Cooperative, negative suicidal or homicidal ideations Initial Vital Signs Initial Vital Signs: Vital Signs Temperature 97.6 F 07/05/25 01:06 Pulse Rate 132 H 07/05/25 01:06 Respiratory Rate 21 07/05/25 01:06 Blood Pressure 189/84 H 07/05/25 01:06 Pulse Oximetry 97 07/05/25 01:06 Oxygen Delivery Method Room Air 07/05/25 01:06 Course Orders Ordered: ED Orders 07/05/25 00:58 XR chest 1V Stat EKG-12 Lead Stat 07/05/25 01:00 Complete Blood Count AUTO DIFF Stat Comprehensive Metabolic Panel Stat Lipase Stat Magnesium Stat NT-proBNP (BNP-Adult 18+) Stat TSH [Thyroid Stimulating Hormone] Stat Troponin I Stat Discontinued Medications Diltiazem HCl (Diltiazem 25 Mg/5 Ml Sdv) 15 mg IV NOW ONE Stop: 07/05/25 01:19 Last Admin: 07/05/25 01:29 Dose: 15 mg Documented By: SH Sodium Chloride (Normal Saline 0.9%) 1,000 mls @ 1,000 mls/hr IV BOLUS ONE Stop: 07/05/25 01:57 Last Admin: 07/05/25 01:28 Dose: 1,000 mls/hr Documented By: YSABEL Magnesium Sulfate (Magnesium Sulfate) 2 gm in 50 mls @ 150 mls/hr IV NOW ONE Stop: 07/05/25 01:37 Last Admin: 07/05/25 01:30 Dose: 150 mls/hr Documented By: YSABEL Co-signed By: FARAZ Vital Signs Vital signs: Vital Signs - 8 hr 07/05/25 01:06 07/05/25 01:29 Temperature 97.6 F Pulse Rate 132 H 151 H Respiratory Rate 21 Blood Pressure 189/84 H 189/84 H Pulse Oximetry 97 Oxygen Delivery Method Room Air MDM - Arrhythmia/Palpitations Lab Data 07/05/25 01:00 07/05/25 01:00 Labs: Lab Results 07/05/25 Range/Units 01:00 WBC 6.0 (4.5-11.0) X10^3/uL RBC 4.55 (4.0-5.2) X10^6/uL Hgb 15.6 (12.0-16.0) g/dL Hct 44.6 (36-46) % MCV 98.0 (80-100) fL MCH 34.3 H (26-34) PG MCHC 35.1 (30-36) % RDW 12.5 (11.6-14.8) % Plt Count 169 (150-400) X10^3/uL Neut % (Auto) 36.5 L (50-75) % Lymph % (Auto) 52.9 H (25-40) % [place] % (Auto) 7.6 (3-14) % Eos % (Auto) 2.0 (2-4) % Baso % (Auto) 1.0 (0-2) % Neut # (Auto) 2200 (0772-1075) /uL Lymph # (Auto) 3200 (4937-5370) /uL [place] # (Auto) 500 (0-900) /uL Eos # (Auto) 100 (0-450) /uL Baso # (Auto) 100 (0-100) /uL Sodium 136 L (137-145) mmol/L Potassium 3.7 (3.4-5.1) mmol/L Chloride 103 (98-107) mmol/L Carbon Dioxide 24 (22-32) mmol/L BUN 17 (7-17) mg/dL Creatinine 0.61 (0.52-1.04) mg/dL Estimated GFR > 60 (>60) mL/min BUN/Creatinine Ratio 27.9 H (6-22) Glucose 119 H (70-99) mg/dL Calcium 9.3 (8.4-10.2) mg/dL Magnesium 2.2 (1.6-2.3) mg/dL Total Bilirubin 0.6 (0.2-1.3) mg/dL AST 66 H (14-36) IU/L ALT 100 H (<35) IU/L Alkaline Phosphatase 122 (38-126) U/L Troponin I < 0.012 (0.01-0.034) ng/mL NT-Pro-B Natriuret Pep < 20 (<125) pg/mL Total Protein 8.0 (6.3-8.2) g/dL Albumin 4.9 (3.5-5.0) g/dL Globulin 3.1 (1.7-4.1) g/dL Albumin/Globulin Ratio 1.6 (1.0-2.8) Lipase 148 (23-300) U/L TSH 7.93 H (0.47-4.68) uIU/mL ECG Data Interpretation: EKG interpreted ED physician atrial fibrillation 136 beats per minute QTC 490, normal axis, nonspecific ST changes no STEMI MDM Narrative Medical decision making narrative: 70-year-old female without any pertinent past medical history comes into the ED via EMS for evaluation of palpitation ongoing persistent for the past week, patient was found to be in AFib, she denies any chest pain shortness of breath denies any other symptoms, she states that 8 years ago she has a history of an arrhythmia that was attributed to caffeine use she states that she does not had any issues since then has not taken any caffeine recently. Patient with a CHADS-VASc score of 3 for age and sex, 8 EKG did show AFib at 1:36 a.m. upon initial presentation, 2 g magnesium, 15 mg IV Cardizem, followed by 25 mg IV Cardizem did have initial response but patient went back into sustained rates in the 120s therefore Cardizem drip was started. Lab work: no leukocytosis, creatinine normal no electrolyte derangement, troponin negative BNP negative chest x-ray without any acute cardiopulmonary abnormality. Patient's TSH was noted to be slightly elevated at 7.93 which could be the contributing factor patient no history of thyroid issues. Patient require admission to the hospital secondary to need for IV Cardizem drip The patient's management plan was discussed Dr. Charles, who agrees to admit the patient to their service and assumes care of this patient at this time. Full admission orders will be placed by the primary team. Critical Care Time Critical Care Time Critical Care Time: Yes Total Critical Care Time: 35 Attestation: Authorized and Performed by: Barrie Johnson DO Total critical care time: Approximately [35] minutes Due to a high probability of clinically significant, life threatening deterioration, the patient required my highest level of preparedness to intervene emergently and I personally spent this critical care time directly and personally managing the patient. This critical care time included obtaining a history; examining the patient; pulse oximetry; ordering and review of studies; arranging urgent treatment with development of a management plan; evaluation of patient's response to treatment; frequent reassessment; and, discussions with other providers. This critical care time was performed to assess and manage the high probability of imminent, life-threatening deterioration that could result in multi-organ failure. It was exclusive of separately billable procedures and treating other patients and teaching time. Please see MDM section and the rest of the note for further information on patient assessment and treatment. Discharge Plan Departure Patient Disposition: Admitted As Inpatient Clinical Impression: New onset a-fib, TSH elevation
--- NOTE | 2025-07-05 00:58 | DI.RAD.S_ITS ---
PROCEDURE: XR CHEST 1V
--- NOTE | 2025-07-05 00:58 | EKG_ITS ---
[facility]
[2025-07-05 01:06] LABS: Add Manual Diff / Slide Review NO; Hematocrit 44.6 % (36-46); Hemoglobin 15.6 g/dL (12.0-16.0); Lymphocytes Absolute Auto 3200 /uL (1100-4500); Mean Corpuscular HGB Conc 35.1 % (30-36); Mean Corpuscular Hemoglobin 34.3 PG (26-34); Mean Corpuscular Volume 98.0 fL (80-100); Platelet Count 169 X10^3/uL (150-400)
[2025-07-05 01:18] LABS: Alanine Aminotransferase 100 IU/L (<35); Albumin 4.9 g/dL (3.5-5.0); Albumin Globulin Ratio 1.6 (1.0-2.8); Alkaline Phosphatase 122 U/L (38-126); Blood Urea Nitrogen 17 mg/dL (7-17); Calcium 9.3 mg/dL (8.4-10.2); Carbon Dioxide 24 mmol/L (22-32); Chloride 103 mmol/L (98-107); Estimated Glomerular Filt Rate > 60 mL/min (>60); Globulin 3.1 g/dL (1.7-4.1); Glucose 119 mg/dL (70-99); HEMOLYSIS 32 (0-50); Lipase 148 U/L (23-300); Magnesium 2.2 mg/dL (1.6-2.3); Potassium 3.7 mmol/L (3.4-5.1); Sodium 136 mmol/L (137-145); Total Protein 8.0 g/dL (6.3-8.2)
[2025-07-05] MEDS: SODIUM CHLORIDE 0.9% 1,000 ML 1000 ML IV (01:28)
[2025-07-05 01:29] LABS: NT-proBNP (BNP-Adult 18+) < 20 pg/mL (<125); Troponin I < 0.012 ng/mL (0.01-0.034)
[2025-07-05] MEDS: MAGNESIUM SULFATE 2 GM/50 ML PIGGYBACK IV (01:30)
[2025-07-05 01:54] LABS: Thyroid Stimulating Hormone 7.93 uIU/mL (0.47-4.68)
--- NOTE | 2025-07-05 05:45 | P.HP_ITS ---
History of Present Illness
--- NOTE | 2025-07-05 05:45 | PM.HP.1 ---
History of Present Illness History of Present Illness Date Patient Seen: 07/05/25 Time Patient Seen: 05:46 Chief complaint: heart palpitations Narrative: 70-year-old female with no reported past medical history presents with complaint of palpitation. Per the patient's report, the patient has been having intermittent palpitation over the last week. In addition over the last month the patient has felt as if she had anxiety attack. 8 years ago the patient did have some irregular heart rhythm but was told that it was secondary to caffeine and she was not ever diagnosed with atrial fibrillation or atrial flutter. Otherwise the patient denies any fever, chills, nausea, vomiting, diarrhea, chest pain or shortness of breath. In the emergency room, the patient was hemodynamically stable. The patient however was in A-fib with RVR. Initially the patient was given IV diltiazem injection but the patient continued to be in A-fib with RVR. I ER physician started diltiazem drip and requested for admission. Labs were relatively benign except for TSH at 7.9. Trope was negative. [facility] Medical History (Updated 07/05/25 @ 02:50 by Barrie Johnson DO) Family history of colorectal cancer Impaired fasting blood sugar Genitourinary syndrome of menopause Gallbladder polyp Hepatic steatosis Anxiety (~1984) Chicken pox Painful menstrual periods (~1998) Fibroids (~1998) Overweight (BMI 25.0-29.9) Liver enzyme elevation Dyslipidemia CTS (carpal tunnel syndrome) Surgical History Anesthesia History of tubal ligation (~1993) History of right breast biopsy (~1994) History of hysterectomy (~1999) History of appendectomy (~2009) Family History Father Cancer Mother Cancer Grandfather Cancer Grandmother Cancer Social History Smoking Status: Never smoker Meds Home Medications and Allergies Home Medications ?Medication ?Instructions ?Recorded ?Confirmed ?Type estradiol 0.01% (0.1 mg/gram) 1 g vaginal .2xmonthly #42.5 grams 02/17/25 07/05/25 Rx vaginal cream (Estrace) Held on 07/05/25. Instructions: Change in level of care Allergies Allergy/AdvReac Type Severity Reaction Status Date / Time No Known Drug Allergies Allergy Verified 07/05/25 01:07 Review of Systems Review of Systems ROS: Yes All systems reviewed with the patient and are negative except as otherwise documented Exam Vital Signs (past 8 hours): - 07/05/25 01:06 07/05/25 01:11 07/05/25 01:29 Temperature 97.6 F Pulse Rate 132 H 144 H 151 H Respiratory Rate 21 9 L Blood Pressure 189/84 H 189/84 H Pulse Oximetry 97 95 Oxygen Delivery Method Room Air Room Air 07/05/25 01:30 07/05/25 01:31 07/05/25 01:31 Temperature Pulse Rate 149 H 148 H Respiratory Rate 10 L 15 Blood Pressure 153/129 H Pulse Oximetry 93 93 Oxygen Delivery Method Room Air Room Air 07/05/25 02:00 07/05/25 02:00 07/05/25 02:10 Temperature Pulse Rate 134 H 139 H Respiratory Rate 10 L 12 Blood Pressure 146/89 H Pulse Oximetry 96 94 Oxygen Delivery Method Room Air Room Air 07/05/25 02:10 07/05/25 02:16 07/05/25 02:20 Temperature Pulse Rate 135 H 135 H Respiratory Rate 9 L Blood Pressure 135/61 135/61 Pulse Oximetry 93 Oxygen Delivery Method Room Air 07/05/25 02:20 07/05/25 02:24 07/05/25 02:24 Temperature Pulse Rate 125 H Respiratory Rate 10 L Blood Pressure 102/53 L 109/63 Pulse Oximetry 94 Oxygen Delivery Method Room Air 07/05/25 02:30 07/05/25 02:30 07/05/25 02:40 Temperature Pulse Rate 128 H 126 H Respiratory Rate 10 L 10 L Blood Pressure 113/61 Pulse Oximetry 93 93 Oxygen Delivery Method Room Air Room Air 07/05/25 02:40 07/05/25 02:50 07/05/25 02:50 Temperature Pulse Rate 131 H Respiratory Rate 7 L Blood Pressure 114/56 L 110/62 Pulse Oximetry 93 Oxygen Delivery Method Room Air Room Air 07/05/25 03:00 07/05/25 03:00 07/05/25 03:09 Temperature Pulse Rate 128 H 126 H Respiratory Rate 8 L Blood Pressure 94/58 L 121/76 Pulse Oximetry 95 Oxygen Delivery Method Room Air 07/05/25 03:10 07/05/25 03:10 07/05/25 03:20 Temperature Pulse Rate 128 H 130 H Respiratory Rate 14 11 L Blood Pressure 121/76 Pulse Oximetry 93 93 Oxygen Delivery Method Room Air Room Air 07/05/25 03:20 07/05/25 03:30 07/05/25 03:30 Temperature Pulse Rate 127 H Respiratory Rate 10 L Blood Pressure 108/59 L 102/68 Pulse Oximetry 93 Oxygen Delivery Method Room Air 07/05/25 03:40 07/05/25 03:40 Temperature Pulse Rate 127 H Respiratory Rate 8 L Blood Pressure 112/85 Pulse Oximetry 95 Oxygen Delivery Method Room Air Oxygen Delivery Method Room Air Narrative Exam Narrative: Physical Exam: GENERAL: The patient is not in any acute distressed. Awake and alert. HEENT: Nonicteric sclerae, PERRLA, EOMI. Oropharynx clear. Moist mucous membranes. Conjunctivae appear well perfused. HEART: Irreg rhythm and tachy without murmurs. No lower extremities edema. LUNGS: Clear to auscultation bilaterally. No wheezing, crackles or rhonchi ABDOMEN: Soft, positive bowel sounds, nontender. SKIN: No rash, no excessive bruising, petechiae, or purpura. NEUROLOGIC: AxO x 3. Cranial nerves II-XII intact without motor/sensory deficit. Objective Labs 07/05/25 01:00 07/05/25 01:00 Labs: Laboratory Results - last 24 hr 07/05/25 01:00 WBC 6.0 RBC 4.55 Hgb 15.6 Hct 44.6 MCV 98.0 MCH 34.3 H MCHC 35.1 RDW 12.5 Plt Count 169 Neut % (Auto) 36.5 L Lymph % (Auto) 52.9 H [place] % (Auto) 7.6 Eos % (Auto) 2.0 Baso % (Auto) 1.0 Neut # (Auto) 2200 Lymph # (Auto) 3200 [place] # (Auto) 500 Eos # (Auto) 100 Baso # (Auto) 100 Sodium 136 L Potassium 3.7 Chloride 103 Carbon Dioxide 24 BUN 17 Creatinine 0.61 Estimated GFR > 60 BUN/Creatinine Ratio 27.9 H Glucose 119 H Calcium 9.3 Magnesium 2.2 Total Bilirubin 0.6 AST 66 H ALT 100 H Alkaline Phosphatase 122 Troponin I < 0.012 NT-Pro-B Natriuret Pep < 20 Total Protein 8.0 Albumin 4.9 Globulin 3.1 Albumin/Globulin Ratio 1.6 Lipase 148 TSH 7.93 H Assessment & Plan Assessment & Plan narrative: New onset A-fib with RVR. Admit the patient to medical ICU with telemetry. Continue diltiazem drip. TSH actually is high at 7.9. Will continue diltiazem drip and obtain echocardiogram. Will start Eliquis as patient states she has no history of bleeding and is agreeable to take Eliquis for stroke prevention. Elevated TSH. Will need to reflex to T4. If T4 is low consider starting low-dose Synthroid. DVT prophylaxis Eliquis. CODE STATUS full code. Disposition likely home in 1 to 2 days - As the provider of this telehealth evaluation, requested by the patient's evaluating physician, I attest that I introduced myself to the patient, provided my credentials and determined that telemedicine via a real-time, 2 way interactive audio and video platform is an appropriate and effective means of providing this service. - I reviewed the patient's chart and had a discussion with the member of the patient's treatment team. - The patient and I mutually agreed with continuation of this evaluation via telemedicine. The patient consented for the telemedicine evaluation. - This virtual encounter was taken place from [place] by Dr. Chicho Charles. The patient was evaluated at [facility]. The encounter was approximately 35 minutes. The nurse was present during the entire time of the encounter and was able assists with the stethoscope to listen to the patients. Time-Based Coding :: [TOTAL MINUTES] spent with patient and on the chart (including review of chart, obtaining history, exam, reviewing outside data, placing orders, documenting exam and treatment plan, and counseling patient) on [DATE].
[2025-07-05 07:24] LABS: Free T4, Direct Thyroxine 0.86 ng/dL (0.78-2.19)
[2025-07-05] MEDS: APIXABAN 5 MG TABLET PO (10:04)
[2025-07-05] MEDS: SODIUM CHLORIDE 0.9% 1,000 ML 125 ML IV (10:06)
[2025-07-05] MEDS: METOPROLOL IR 25 MG TABLET PO (11:55)
--- NOTE | 2025-07-05 13:47 | P.DS_ITS ---
History of Present Illness
--- NOTE | 2025-07-05 13:47 | PM.DS.IH.1 ---
History of Present Illness History of Present Illness Date Patient Seen: 07/05/25 Time Patient Seen: 09:20 Chief complaint: heart palpitations Narrative: Chief complaint: heart palpitations Narrative: 70-year-old female with no reported past medical history presents with complaint of palpitation. Per the patient's report, the patient has been having intermittent palpitation over the last week. In addition over the last month the patient has felt as if she had anxiety attack. 8 years ago the patient did have some irregular heart rhythm but was told that it was secondary to caffeine and she was not ever diagnosed with atrial fibrillation or atrial flutter. Otherwise the patient denies any fever, chills, nausea, vomiting, diarrhea, chest pain or shortness of breath. In the emergency room, the patient was hemodynamically stable. The patient however was in A-fib with RVR. Initially the patient was given IV diltiazem injection but the patient continued to be in A-fib with RVR. I ER physician started diltiazem drip and requested for admission. Labs were relatively benign except for TSH at 7.9. Trope was negative. Discharge Providers Provider Date of admission: 07/05/25 02:51 Discharge Date: 07/05/25 Primary care physician: CAROLE Davis Discharge provider: Luis Fagan MD Summary Hospital Course Discharge Diagnosis: 1. New onset atrial fibrillation with rapid ventricular response 2. Dyslipidemia 3. Impaired fasting blood sugar 4. Hepatic steatosis 5. Elevated TSH Hospital Course: The patient was admitted and monitored on telemetry on a diltiazem infusion. Heart rates remained persistently elevated in the 130s. Metoprolol oral therapy was added and metoprolol weaned off, with heart rates in the 70s to 80s at the time of discharge. Anticoagulation was started given a CHADS2-Vasc score of 2. Echocardiography was unremarkable. TSH elevation was noted and outpatient follow-up advised. Consider outpatient Cardiology consultation. Status at Discharge Cognitive/behavioral status at discharge: oriented Functional status at discharge: independent ambulation Overall status at discharge: patient is back to baseline Time Spent with Patient Time spent: Greater than 30 minutes Exam Vital Signs (past 8 hours): - 07/05/25 06:00 07/05/25 06:00 07/05/25 06:00 Temperature 98.2 F Pulse Rate 132 H 126 H Respiratory Rate 18 11 L Blood Pressure 115/68 105/58 L Pulse Oximetry 95 93 Oxygen Delivery Method 07/05/25 06:15 07/05/25 06:15 07/05/25 06:30 Temperature Pulse Rate 118 H Respiratory Rate 13 Blood Pressure 102/58 L 97/52 L Pulse Oximetry 91 Oxygen Delivery Method 07/05/25 06:30 07/05/25 06:45 07/05/25 06:45 Temperature Pulse Rate 123 H 124 H Respiratory Rate 15 13 Blood Pressure 98/55 L Pulse Oximetry 90 L 91 Oxygen Delivery Method 07/05/25 07:00 07/05/25 07:00 07/05/25 07:00 Temperature Pulse Rate 133 H Respiratory Rate 18 Blood Pressure 111/65 Pulse Oximetry 95 Oxygen Delivery Method Room Air 07/05/25 07:15 07/05/25 07:15 07/05/25 07:30 Temperature Pulse Rate 122 H 119 H Respiratory Rate 9 L 8 L Blood Pressure 111/83 Pulse Oximetry 93 95 Oxygen Delivery Method 07/05/25 07:30 07/05/25 07:45 07/05/25 07:45 Temperature Pulse Rate 125 H Respiratory Rate 10 L Blood Pressure 109/68 111/73 Pulse Oximetry 95 Oxygen Delivery Method 07/05/25 08:00 07/05/25 08:00 07/05/25 08:15 Temperature Pulse Rate 129 H Respiratory Rate 12 Blood Pressure 114/67 107/65 Pulse Oximetry 92 Oxygen Delivery Method 07/05/25 08:15 07/05/25 08:30 07/05/25 08:30 Temperature Pulse Rate 121 H 125 H Respiratory Rate 18 20 Blood Pressure 103/65 Pulse Oximetry 91 90 L Oxygen Delivery Method 07/05/25 09:00 07/05/25 09:00 07/05/25 09:30 Temperature Pulse Rate 125 H 136 H Respiratory Rate 14 31 H Blood Pressure 108/69 Pulse Oximetry 93 94 Oxygen Delivery Method 07/05/25 09:40 07/05/25 10:00 07/05/25 10:00 Temperature 97.5 F L Pulse Rate 136 H Respiratory Rate 12 Blood Pressure 124/66 Pulse Oximetry 94 Oxygen Delivery Method 07/05/25 10:30 07/05/25 11:00 07/05/25 11:00 Temperature Pulse Rate 129 H 80 Respiratory Rate 13 Blood Pressure 109/72 Pulse Oximetry 95 93 Oxygen Delivery Method 07/05/25 11:30 07/05/25 12:00 07/05/25 12:00 Temperature Pulse Rate 91 H 100 H Respiratory Rate Blood Pressure 95/68 Pulse Oximetry 92 93 Oxygen Delivery Method 07/05/25 12:30 07/05/25 13:00 07/05/25 13:00 Temperature Pulse Rate 84 60 Respiratory Rate Blood Pressure 90/56 L Pulse Oximetry 93 95 Oxygen Delivery Method Oxygen Delivery Method Room Air Objective Imaging Chest x-ray: Radiologist's impression: No dense airspace disease or pleural effusion on this single view study. Low lung volumes. Normal heart size. Degenerative osseous changes. Echo: Radiologist's impression: Afib wtih controlled rate. Normal LV size; mild concentric LVH. Normal wall motion and LV systolic function. Ejection fraction 65-70%. Normal chamber sizes. No significant valvular abnormalities. No prior echo available for comparison. Labs 07/05/25 01:00 07/05/25 01:00 Labs: Laboratory Results - last 24 hr 07/05/25 01:00 WBC 6.0 RBC 4.55 Hgb 15.6 Hct 44.6 MCV 98.0 MCH 34.3 H MCHC 35.1 RDW 12.5 Plt Count 169 Neut % (Auto) 36.5 L Lymph % (Auto) 52.9 H [place] % (Auto) 7.6 Eos % (Auto) 2.0 Baso % (Auto) 1.0 Neut # (Auto) 2200 Lymph # (Auto) 3200 [place] # (Auto) 500 Eos # (Auto) 100 Baso # (Auto) 100 Sodium 136 L Potassium 3.7 Chloride 103 Carbon Dioxide 24 BUN 17 Creatinine 0.61 Estimated GFR > 60 BUN/Creatinine Ratio 27.9 H Glucose 119 H Calcium 9.3 Magnesium 2.2 Total Bilirubin 0.6 AST 66 H ALT 100 H Alkaline Phosphatase 122 Troponin I < 0.012 NT-Pro-B Natriuret Pep < 20 Total Protein 8.0 Albumin 4.9 Globulin 3.1 Albumin/Globulin Ratio 1.6 Lipase 148 TSH 7.93 H Free T4 0.86 PFSH Medical History Anxiety (~1984) Chicken pox CTS (carpal tunnel syndrome) Dyslipidemia Family history of colorectal cancer Fibroids (~1998) Gallbladder polyp Genitourinary syndrome of menopause Hepatic steatosis Impaired fasting blood sugar Liver enzyme elevation Overweight (BMI 25.0-29.9) Painful menstrual periods (~1998) Surgical History Anesthesia History of appendectomy (~2009) History of hysterectomy (~1999) History of right breast biopsy (~1994) History of tubal ligation (~1993) Family History Father Cancer Mother Cancer Grandfather Cancer Grandmother Cancer Social History household members: spouse Smoking Status: Never smoker alcohol intake: current Discharge Plan Discharge Plan Patient Disposition: Home Provider Discharge Comment: Followup with CAROLE Davis this week Discharge orders & Medications Prescriptions: New metoprolol tartrate 25 mg Tablet 25 mg PO BID Qty: 60 0RF Eliquis 5 mg Tablet 5 mg PO BID Qty: 60 0RF Continued estradiol [Estrace] 0.01 % (0.1 mg/gram) cream 1 g VAG .2xmonthly Qty: 42.5 5RF Follow up/Referrals: Gonzalo Baker ARNP [Primary Care Provider, Medical] Diet/Activity/Treatments Diet: Regular, Low-fat and Low-sodium Visit Report/Discharge Packet Stand Alone Forms: Patient Portal/API, Stroke Signs & Symptoms Discharge Data Primary Care Provider: Gonzalo Baker Quality VTE Deep Vein Thrombosis/Pulmonary Embolism Present on Admission: No MIPS - Admit I confirm the patient?s Advance Care Plan is present, Code status is documented, Surrogate decision maker is in patient?s record [If Yes, STOP here]: Yes MIPS - Meds 'Current medications' to include all prescriptions, [id number] products, herbals, cannabis/cannabidiol products, and vitamin/mineral/dietary (nutritional) supplements. I have utilized all available resources to obtain, update, or review the patient?s current medications. [If Yes, STOP here]: Yes MIPS - DC The patient has a history of heart transplant or Left Ventricular Assist Device (LVAD). If yes, STOP here.: No The patient has current or prior documentation of left ventricular ejection fraction (LVEF) less than or equal to 40%, or moderate or severely depressed left ventricular systolic function.: No A. The patient was prescribed or already taking an Angiotensin-Converting Enzyme (ALEXI) Inhibitor, or Angiotensin Receptor Bruce (ARB).: No B. The patient was prescribed or already taking a beta-bruce. [If Yes to Both A & B, STOP here]: Yes Patient not prescribed/taking ALEXI or ARB, no reason given.: No Patient not prescribed/taking beta-bruce, no reason given.: No PROFEE Charge Codes Discharge inpatient/observation: [id number]
--- NOTE | 2025-07-05 14:29 | CM.DANOTE ---
Initial DCP Assessment Note. Review EMR and PT Interview. Met with patient at bedside to discuss discharge needs.PT is alert x 4 sitting up in chair. No acute distress. Patient is independent and lives with spouse. Payor:[employer]?? PCP: Summary & Plan:?70 y/o female arrived to ED via POV c/o palpitations. Admitted INPT ICU. Dx. A.fib with RVR. Plan: Dilt gtt for heart rate control. Discharge to home when improved. Discharge Planning/Care Management CM Discharge Assessment Start: 07/05/25 03:58 Freq: Status: Discharge Protocol: Document 07/05/25 14:27 (Rec: 07/05/25 14:28 [email or web address]) Discharge Planning Assessment Assigned Discharge Brittanie Jose RN CM Warehouse Assistant Provider Dr. Baker Insurance [facility] Advance Directives? No History Provided By Patient Has Patient been No admitted in last 30 days? Prior Living House Arrangements Household Members spouse Referrals Initiated None needed Review Status In Process Please Provide Date 07/05/25 Initial DC Assessment Was Performed Next Review Type Continued Stay Review
== END 2025-07-05 14:25 | disposition home or self-care (01) | DRG 310 ==
LOC: ED 02:50 → AC 02:52 → ICU 02:58
PROVIDERS: Admitting Provider Internal Medicine; Emergency Provider Student in an Organized Health Care Education/Training Program; PCP Registered Nurse Diabetes Educator; Referring Provider Student in an Organized Health Care Education/Training Program; Visit Provider Internal Medicine
DX: I48.91 Unspecified atrial fibrillation (principal); E78.5 Hyperlipidemia, unspecified; R73.02 Impaired glucose tolerance (oral); K76.0 Fatty (change of) liver, not elsewhere classified; E03.8 Other specified hypothyroidism
CPT/HCPCS: 36415; 71045; 80053; 83690; 83735; 83880; 84439; 84443; 84484; 85025; 93005; 96365; 96375; 96376; 99284; 99291; C8929; J3475; J7030; J7050; Q9957

== ENCOUNTER → 2025-07-29 13:00 | Outpatient (CLI) | payer OTHER, SELFPAY ==
[2025-07-05 05:00] VITALS: BMI 29.2
--- NOTE | 2025-07-29 13:01 | DI.MG.S_ITS ---
MM screening mammo BI: 07/29/2025. BI-RADS: 2 CLINICAL: 70-year old female for bilateral screening mammogram. Tyrer-Cuzick lifetime risk of 4.4%. No personal or first-degree family history of breast cancer. PRIOR EXAMS 03/21/2024, 03/04/2023, 03/03/2022, 12/17/2020. MAMMOGRAPHY TECHNIQUE: 2D and 3D (tomosynthesis) digital mammographic views obtained, with additional images as needed for full coverage. Current study was also evaluated with a Computer Aided Detection (CAD) system. DENSITY C. The breasts are heterogeneously dense, which may obscure small masses. MAMMOGRAPHY FINDINGS Right: Benign-appearing asymmetry noted on the right. There are no suspicious masses, calcifications, or other findings in the breast. No significant change from comparison. Left: No suspicious mass, asymmetry, microcalcification, or other abnormality seen. No significant change from comparison. IMPRESSION: Right * No evidence of malignancy with benign findings. Left * No evidence of malignancy. RECOMMENDATIONS Bilateral * Annual screening mammography. OVERALL ASSESSMENT CATEGORY BI-RADS-2: Benign. [employer] recommends annual screening mammography beginning at age 40 for women with average risk of breast cancer. ELECTRONICALLY SIGNED: Zack Mascorro M.D. on 07/30/2025 at 01:13:54 PM PT Interpreting Station ID: [id number]
== END ==
LOC: MAMMO 13:00
PROVIDERS: PCP Registered Nurse Diabetes Educator; Referring Provider Registered Nurse Diabetes Educator; Visit Provider Registered Nurse Diabetes Educator
DX: Z12.31 Encounter for screening mammogram for malignant neoplasm of breast (principal); R92.333 Mammographic heterogeneous density, bilateral breasts; Z80.3 Family history of malignant neoplasm of breast
CPT/HCPCS: 77063; 77067